=== PATIENT | female | born 1955 | race Caucasian/White ===

== ENCOUNTER → 2023-07-15 | Outpatient (CLI) | payer MEDICARE ==
[2023-07-15 12:38] LABS: BASOPHILS ABSOLUTE AUTO 0.07 K/mm3 (0.00-0.23); BASOPHILS PERCENT AUTO 1 % (0-2); EOSINOPHILS ABSOLUTE AUTO 0.23 K/mm3 (0.00-0.68); EOSINOPHILS PERCENT AUTO 2 % (0-6); Hematocrit 42.7 % (33.0-51.0); Hemoglobin 13.8 g/dL (11.5-16.0); IMMATURE GRAN ABSOLUTE AUTO 0.05 K/mm3 (0.00-0.10); IMMATURE GRAN PERCENT AUTO 1 % (0-1); LYMPHOCYTES ABSOLUTE AUTO 3.98 K/mm3 (0.84-5.20); LYMPHOCYTES PERCENT AUTO 40 % (21-46); MONOCYTES ABSOLUTE AUTO 0.68 K/mm3 (0.16-1.47); MONOCYTES PERCENT AUTO 7 % (4-13); Mean Corpuscular HGB 29.7 pg (26.0-34.0); Mean Corpuscular HGB Conc 32.3 g/dL (31.5-36.5); Mean Corpuscular Volume 92 fL (80-100); Mean Platelet Volume 9.7 fL (9.1-12.4); NEUTROPHILS ABSOLUTE AUTO 4.83 K/mm3 (1.96-9.15); NEUTROPHILS PERCENT AUTO 49 % (41-73); Platelet Count 547 K/mm3 (150-400); RDW Coefficient Variation 15.3 % (11.7-14.2); RDW Standard Deviation 50.7 fL (35.1-46.3); Red Blood Cell Count 4.65 M/mm3 (3.80-5.20); White Blood Cell Count 9.84 K/mm3 (4.00-11.30)
[2023-07-15 12:49] LABS: Albumin, Blood 3.4 g/dL (3.4-5.0); Albumin/Globulin Ratio 0.7 (0.8-1.8); Bilirubin, Total 0.4 mg/dL (0.1-1.0); Bun/Creatinine Ratio 13.4 (12.0-20.0); Calcium, Blood 9.6 mg/dL (8.5-10.1); Creatinine, Blood 0.82 mg/dL (0.40-1.00); Globulin, Blood 5.2 g/dL (2.2-4.0); Potassium, Blood 4.2 mmol/L (3.5-5.5); Total Protein, Blood 8.6 g/dL (6.4-8.2)
== END ==
LOC: LAB 12:33 → LAB SHORT 12:33
PROVIDERS: Chiropractor
DX: R10.32 Left lower quadrant pain (principal)
CPT/HCPCS: 80053; 83690; 85025

== ENCOUNTER 2024-11-27 09:22 | Day surgery (SDC) | payer MEDICARE, OTHER ==
[~2024-11-27] VITALS: Ht 167.6 cm; Wt 94.3 kg
[~2024-11-27 09:22] MED LIST: Balanced Salt Epinephrine Irrigation Solution 500 mL IR SCH; Moxifloxacin HCL 0.5 MG/0.1 ML 0.4MLSYR LEFTEYE SCH; Ondansetron 4 MG SoluTab MM PRN; PHENYLEPHRINE\\TROPICAMIDE\\TETRACAINE OPHTHALMIC DILATING SOLN LEFTEYE PRN; Povidone-Iodine 450 DROP/30 ML Solution LEFTEYE SCH; Povidone-Iodine 450 DROP/30 ML Solution ONE; Tetracaine HCl/Pf 0.5% Opth Soln 4 ml ONE
[2024-11-27] MEDS ORDERED: GABA800 (09:48)
[2024-11-27] MEDS ORDERED: PROP10 (09:48)
[2024-11-27] MEDS ORDERED: OMEP20ER (09:49)
[2024-11-27] MEDS ORDERED: FURO40 (09:49)
[2024-11-27] MEDS ORDERED: POTA8 (09:50)
[2024-11-27] MEDS ORDERED: METH40 (09:51)
--- NOTE | 2024-11-27 10:00 | NUR ---
11/27/24 Margaux Ko PT STATES ANXIETY LEVEL IS 6/10 CALL LIGHT IN HAND
[2024-11-27] MEDS ORDERED: Tetracaine HCl 0.5% Opth Soln 15 ml LEFTEYE ONE (10:17)
--- NOTE | 2024-11-27 10:23 | NUR ---
11/27/24 1023 David White 123/61 98% 5L O2 VIA NC 52 18 PT DROPPED TO HIGH 80S IN PRE OP. PRE OP NURSE PROVIDED NC, CONTINUED USE OF NC IN OR. VSS. PT TOLERATING PROCEDURE WELL.
--- NOTE | 2024-11-27 10:41 | NUR ---
11/27/24 1041 Evi Garcia REPORT TO DARRIAN RIOS
[2024-11-28] MEDS ORDERED: BACL10 PO (12:57)
[2024-11-28] MEDS ORDERED: VALA500 (12:57)
== END 2024-11-27 10:59 | disposition home or self-care (01) ==
LOC: ORSCSDS 09:22
PROVIDERS: Student in an Organized Health Care Education/Training Program
PROC: 08RK3JZ Replacement of Left Lens with Synthetic Substitute, Percutaneous Approach (ICD-10-PCS; principal; 2024-11-27 11:00)
DX: H25.813 Combined forms of age-related cataract, bilateral (principal); I10 Essential (primary) hypertension; Z79.899 Other long term (current) drug therapy; F17.210 Nicotine dependence, cigarettes, uncomplicated
CPT/HCPCS: A9270; V2632

== ENCOUNTER 2024-12-05 07:20 | Day surgery (SDC) | payer MEDICARE, OTHER ==
[~2024-12-05] VITALS: Ht 170.2 cm; Wt 93.6 kg
[~2024-12-05 07:20] MED LIST changes: +BACL10 PO; +FURO40; +GABA800; +METH40; -Moxifloxacin HCL 0.5 MG/0.1 ML 0.4MLSYR LEFTEYE SCH; +Moxifloxacin HCL 0.5 MG/0.1 ML 0.4MLSYR RIGHTEYE SCH; +OMEP20ER; -PHENYLEPHRINE\\TROPICAMIDE\\TETRACAINE OPHTHALMIC DILATING SOLN LEFTEYE PRN; +PHENYLEPHRINE\\TROPICAMIDE\\TETRACAINE OPHTHALMIC DILATING SOLN RIGHTEYE PRN; +POTA8; +PROP10; -Povidone-Iodine 450 DROP/30 ML Solution LEFTEYE SCH; -Povidone-Iodine 450 DROP/30 ML Solution ONE; +Povidone-Iodine 450 DROP/30 ML Solution RIGHTEYE SCH; -Tetracaine HCl/Pf 0.5% Opth Soln 4 ml ONE; +VALA500
--- NOTE | 2024-12-05 08:09 | NUR ---
12/05/24 0809 Talya Chambers PT NOTED ANXIETY LEVEL ABOUT 4/10.
[2024-12-05] MEDS ORDERED: Tetracaine HCl 0.5% Opth Soln 15 ml XX ONE (08:41)
--- NOTE | 2024-12-05 08:46 | NUR ---
12/05/24 0847 David White N 133/84 56 18 97% 10L BLOW BY O2
== END 2024-12-05 09:12 | disposition home or self-care (01) ==
LOC: ORSCSDS 07:20
PROVIDERS: Student in an Organized Health Care Education/Training Program
PROC: 08RJ3JZ Replacement of Right Lens with Synthetic Substitute, Percutaneous Approach (ICD-10-PCS; principal; 2024-12-05 09:00)
DX: H25.811 Combined forms of age-related cataract, right eye (principal); Z96.1 Presence of intraocular lens; I10 Essential (primary) hypertension; Z79.899 Other long term (current) drug therapy; F17.210 Nicotine dependence, cigarettes, uncomplicated
CPT/HCPCS: A9270; V2632